=== PATIENT | female | born 1955 | race Caucasian/White ===

== ENCOUNTER 2017-03-12 12:33 | Outpatient (CLI) | payer OTHER ==
--- NOTE | 2017-03-12 14:12 | DIAGNOSTIC IMAGING REPORT ---
PROCEDURE: CT SOFT TISSUE NECK WITH CONT INDICATION: NECK PAIN;COPD;ABD MASS, initial encounter TECHNIQUE: 75 ml of Isovue 300 injected intravenously and axial images were obtained from the skull base through the upper mediastinum with sagittal and coronal reformations. In addition, angled axial oblique images were obtained ( avoiding dental hardware). COMPARISON: None. FINDINGS: Nonspecific subcentimeter bilateral cervical lymph nodes. The parotid, submandibular and thyroid glands are normal. Normal airway. Severe emphysema. Moderate bilateral carotid bifurcation atherosclerosis. Visualized sinuses are clear. Mastoids are clear. Moderate degenerative changes most prominent at C5-6 and C6-7. IMPRESSION: 1. Negative CT soft tissue neck. 2. Emphysema All CT scans at this facility use dose modulation, iterative reconstruction, and/or weight-based dosing when appropriate to reduce radiation dose to as low as reasonably achievable.
--- NOTE | 2017-03-12 14:28 | DIAGNOSTIC IMAGING REPORT ---
PROCEDURE: CT THORAX ABD PELVIS W/CONT INDICATION: NECK PAIN;COPD;ABD MASS, initial encounter. TECHNIQUE: 75 ml. of Isovue 300 injected intravenously and axial images were obtained of the entire thorax, abdomen, and pelvis with sagittal and coronal reformations. COMPARISON: None. FINDINGS: THORAX: Severe bullous emphysema with scarring in the left lower lobe posteriorly. 1.3 cm precarinal lymph node. No effusion. Mild atherosclerosis of the aorta. Heart size is normal. No suspicious osseous lesions. ABDOMEN: Prominent gallbladder. Liver, pancreas, spleen (calcified granulomas), adrenal glands and kidneys are normal. Moderate atherosclerosis of the aorta. Moderate hiatal hernia. 7 cm fat-containing midline supraumbilical ventral wall hernia. Mild degenerative changes of the spine. PELVIS: Normal appendix. Mild sigmoid diverticulosis. There is a 14 x 9.5 x 9 cm pelvic cystic mass slightly right of midline, with internal septations and nodularity. Normal uterus and bladder. No ascites or inflammatory changes. No suspicious osseous lesions. IMPRESSION: 1. 14 x 9.5 x 9 cm pelvic cystic mass with internal septations and nodularity, suspicious for ovarian neoplasm, possibly cystadenoma or cystadenocarcinoma. No ascites. 2. Mild sigmoid diverticulosis 3. Hiatal hernia 4. 7 cm fat-containing midline supraumbilical ventral wall hernia 5. Severe bullous emphysema 6. Results called to Dr. Conley (voicemail). 4. All CT scans at this facility use dose modulation, iterative reconstruction, and/or weight-based dosing when appropriate to reduce radiation dose to as low as reasonably achievable.
[2017-04-27] MEDS ORDERED: ADVAIR DISKU1 INH (13:51)
[2017-04-27] MEDS ORDERED: ALBUTEROL SUL0.083 % IN (13:52)
[2017-04-27] MEDS ORDERED: AMLODIPINE BESY10 MG PO (13:53)
[2017-04-27] MEDS ORDERED: ALBUTEROL HFA60 DOSE IN (13:53)
[2017-04-27] MEDS ORDERED: ASPIRIN ADULT L81 M1 PO (13:54)
[2017-04-27] MEDS ORDERED: PRINIVIL5 MG PO (13:56)
[2017-04-27] MEDS ORDERED: INCRUSE EL62.5 MCG/I IN (13:56)
[2017-04-27] MEDS ORDERED: MONTELUKAST SOD10 MG PO (13:57)
[2017-04-27] MEDS ORDERED: VENLAFAXINE H37.5 MG PO (13:58)
[2017-04-27] MEDS ORDERED: VITAMIN D310000 IU PO (14:00)
[2017-04-27] MEDS ORDERED: ZANTAC 150 MAX150 MG PO (14:01)
[2017-04-27] MEDS ORDERED: IPRATROPIUM BR0.02 % IN (14:05)
== END 2017-03-12 23:00 ==
LOC: CT SRH 12:33
DX: J43.9 Emphysema, unspecified (principal); R19.00 Intra-abdominal and pelvic swelling, mass and lump, unspecified site; K44.9 Diaphragmatic hernia without obstruction or gangrene; K57.30 Diverticulosis of large intestine without perforation or abscess without bleeding